=== PATIENT | female | born 1970 | race African-American/Black ===

== ENCOUNTER → 2018-05-10 07:25 | Outpatient (CLI) | payer BC, SELFPAY ==
--- NOTE | 2018-05-10 08:23 | XR_ITS ---
XR chest 2V HISTORY: ITS.REASON: cough ORDERING PHYSICIAN: Lucrecia Fish PATIENT AGE: 47 years COMPARISON: PA and lateral chest 01/10/2018 FINDINGS: The cardiomediastinal silhouette and pulmonary vascularity are within normal limits. The lungs are clear without infiltrates, suspicious nodules, or pleural effusions. No acute bony abnormalities. IMPRESSION: Negative chest, no acute finding
--- NOTE | 2018-05-10 08:23 | XR_ITS ---
XR hip LT 2-3V w/pelvis HISTORY: ITS.REASON: left hip pain ORDERING PHYSICIAN: Lucrecia Fish PATIENT AGE: 47 years COMPARISON: None FINDINGS: No fracture or dislocation is evident. No significant degenerative change. No lytic or blastic change. Unremarkable soft tissues IMPRESSION: Negative hip
[2018-05-10 09:57] LABS: Basophils % 0.5 % (0.1-2.0); Eosinophils # 0.4 K/mm3 (0.0-0.4); Eosinophils % 7.3 % (0.1-12.0); Hematocrit 38.9 % (37.0-47.0); Hemoglobin 13.3 g/dL (12.2-16.2); Lymphocytes # 2.1 K/mm3 (0.7-4.5); Lymphocytes % 39.3 % (10-50); Mean Corpuscular HGB Conc 34.1 g/dL (31.8-35.4); Mean Corpuscular Hemoglobin 29.4 pg (27.0-31.2); Mean Corpuscular Volume 86.3 fl (81-99); Mean Platelet Volume 8.5 fl (7.4-10.4); Monocytes # 0.2 K/mm3 (0.1-1.0); Monocytes % 3.8 % (1.7-9.3); Neutrophils # 2.6 K/mm3 (1.8-7.8); Neutrophils % 49.1 % (37.0-80.0); Platelet Count 224 K/mm3 (142-424); Red Blood Count 4.51 M/mm3 (4.20-5.40); Red Cell Distribution Width 12.7 % (11.5-17.5); White Blood Count 5.2 K/mm3 (4.8-10.8)
[2018-05-10 10:40] LABS: Alanine Aminotransferase 20 U/L (12-78); Albumin Level 3.8 gm/dL (3.4-5.0); Albumin/Globulin Ratio 1.1 (1.1-1.8); Alkaline Phosphatase 50 U/L (46-116); Anion Gap 14.9 mEq/L (5-15); Aspartate Amino Transferase 12 U/L (15-37); Bilirubin,Total 0.5 mg/dL (0.2-1.0); Blood Urea Nitrogen 14 mg/dL (7-18); Calcium 8.7 mg/dL (8.5-10.1); Carbon Dioxide 24 mmol/L (21.0-32.0); Chloride 105 mmol/L (98-107); Chol/HDL Ratio 2.9 (1-3.5); Cholesterol 146 mg/dL (140-200); Creatinine,Serum 1.03 mg/dL (0.55-1.02); Estimated Glomerular Filt Rate 58 ml/min (>60); Ferritin 61 ng/mL (8-388); GFR (African American) 70 ML/MIN (>60); Globulin 3.4 gm/dl (1.3-3.2); Glucose 97 mg/dL (74-106); HDL Cholesterol 51 mg/dL (29-89); LDL Cholesterol 85 mg/dL (0-130); Potassium 3.9 mmoL/L (3.5-5.1); Sodium 140 mmol/L (136-145); Total Protein,Serum 7.2 gm/dL (6.4-8.2); Triglycerides 50 mg/dL (30-200); VLDL Cholesterol 10 mg/dL (0-40)
[2018-05-11 18:30] LABS: Vitamin B12 268 pg/mL (232-1245)
[2018-05-12 09:25] LABS: Vitamin D 25 Hydroxy 16.5 ng/mL (30.0-100.0)
== END ==
PROVIDERS: Visit Provider Nurse Practitioner Family
DX: R53.83 Other fatigue (principal); I10 Essential (primary) hypertension
CPT/HCPCS: 36415; 71046; 73502; 80053; 80061; 82607; 82652; 82728; 84443; 85025

== ENCOUNTER → 2018-05-19 11:04 | Outpatient (CLI) | payer BC, SELFPAY ==
[2018-05-19 11:30] VITALS: PULSE 78; PULSE 80
== END ==
PROVIDERS: PCP Nurse Practitioner Family; Visit Provider Nurse Practitioner Family
DX: R05 Cough (principal)
CPT/HCPCS: 94060; 94640

== ENCOUNTER 2019-02-06 14:16 | Emergency (ER) | payer MEDICAID, SELFPAY ==
[2019-02-06 14:36] VITALS: BP 154/92; PULSE 109; RESP 18; TEMP 36.9; O2SAT 99; BMI 29.7
[2019-02-06 15:30] VITALS: BP 154/92; PULSE 109; RESP 18; TEMP 36.9; O2SAT 99; BMI 29.7
[2019-02-06 15:38] LABS: UTC Influenza A Antigen Negative (Negative); UTC Influenza B Antigen Negative (Negative)
--- NOTE | 2019-02-06 16:01 | HMH.EDUTC ---
[facility] [place] Clinical Impression: Bronchitis Sinusitis Qualifiers: Sinusitis location: unspecified location Chronicity: unspecified Qualified Code(s): J32.9 - Chronic sinusitis, unspecified Disposition: Home, Self-Care Condition on Discharge: Good Instructions: Sinusitis, Sinus Headache, DI for Sinusitis, Acute Bronchitis, DI for Acute Bronchitis Additional Instructions: ? Start antibiotic today. Be sure to complete entire prescription even if feeling better ? Monitor temp. Tylenol every 4 hours as needed and / or ibuprofen every 6 hours as needed ( As long as your primary care physician has told you that it ok to take both. For fever/aches/pains ER if no less than 101 despite Tylenol or Motrin ? Humidifier/vaporizer or hot steamy shower ? Inhaler every 4-6 hours as needed like we discussed. If unsure how to use it, ask pharmacist to demonstrate how. Should help open airways and improve cough, wheezing, and shortness of breath ? Mucinex during the day for your cough and cough suppressant only at night. Be sure to drink lots of water. Insurance may not cover a prescriptions for mucinex. Might be cheaper to get 400mg tablets and take 2 tablet in the morning, mid-day and evening with lots of water. *Tessalon Perles will not cause drowsiness but use at bedtime to help stop cough so that you may get some rest. *Start steroid today. Helps with inflammation therefore, cough and wheezing. Follow directions on the package. Reviewed side effects. Patient reports taking them before. Follow up IMMEDIATELY for new or worsening of symptoms OR no noticeable improvement over the next 48-72 hours. 911 immediately for any life threatening symptoms such as chest pain or difficulty breathing Prescriptions: Albuterol Sulfate [Albuterol HFA Inhaler] 1 - 2 puffs IH Q4-6H PRN #1 inh PRN Reason: Shortness Of Breath Or Wheezing Transmission Status: Pending to [facility] Fluticasone Propionate [Flonase 50mcg nasal spray 16gm] 1 - 2 spr NS DAILY #1 bottle Transmission Status: Pending to [facility] predniSONE [Prednisone 20mg Tab] 20 mg PO BID 5 Days #10 tab Transmission Status: Pending to [facility] Azithromycin [Z-Eduardo 250mg Tab*] 250 mg PO UD DOSE PK #6 tab Transmission Status: Pending to [facility] Referrals: Lucrecia Fish APRN [Primary Care Provider] - As needed Time of Disposition: 16:06 Medical Decision Making - Michael Inquiry Pt receiving controlled substance: No Michael was queried for this patient: No Vital Signs: 02/06/19 14:36 02/06/19 15:30 Temperature 98.4 F 98.4 F Temperature Source Oral Oral Pulse Rate [Right] 109 H 109 H Respiratory Rate 18 18 Blood Pressure [Right Arm] 154/92 H 154/92 H Blood Pressure Mean [Right Arm] 112 112 Blood Pressure Source [Right Arm] Automatic Cuff Blood Pressure Position [Right Arm] Sitting 02 Sat by Pulse Oximetry 99 99 Oxygen Delivery Method Room Air - Lab Data Lab results reviewed: Yes: I reviewed the patient's lab results. Lab Results 02/06/19 15:38: Influenza Type A Ag Negative, Influenza Type B Ag Negative - Reevaluation(s) Time: 16:04 Reevaluation #1: Discussed xray patient declined at this time [facility] [place] - General Stated complaint: cough and wheezing SOA Time Seen by Provider: 02/06/19 16:01 Mode of Arrival: Ambulatory Source of Information: Patient Limitations: No Limitations Description of Symptoms (Recalled from Triage Doc. by RN): Pt c/o cough, congestion, and nasal drianage since yesterday. Denies fever but states she is chilling. HEENT Symptoms (Recalled from RN notes): Yes Resp Symptoms (Recalled from RN notes): No Skin Symptoms (Recalled from RN notes): No MS Symptoms (Recalled from RN notes): No Functional Status (Recalled from RN notes): WNL - History of Present Illness Provider Complaint: Patient states that she hasnt been feeling well for a couple of days States that she has been having cough
[2019-02-06 16:25] VITALS: BP 154/92; PULSE 109; RESP 18; TEMP 36.9; O2SAT 99
== END 2019-02-06 16:26 | disposition home or self-care (01) ==
LOC: ER 14:34 → UTC 14:38
PROVIDERS: Emergency Provider Nurse Practitioner; PCP Nurse Practitioner Family
DX: J20.9 Acute bronchitis, unspecified (principal); J32.9 Chronic sinusitis, unspecified
CPT/HCPCS: 87804; 99201

== ENCOUNTER 2021-05-29 12:15 | Emergency (ER) | payer OTHER, SELFPAY ==
[2021-05-29] VITALS (7 sets, daily range): BP systolic 131–164; BP diastolic 89–106; PULSE 89–104; RESP 16–18; TEMP 36.7–36.8; O2SAT 97–99; BMI 30.8
--- NOTE | 2021-05-29 12:33 | XR_ITS ---
FINAL REPORT TECHNIQUE: Single view chest CLINICAL HISTORY: cough COMPARISON: 05/10/2018 FINDINGS: A single view of the chest was obtained. The heart and mediastinum are within normal limits. The lungs are clear. There is no pneumothorax. Osseous structures are unremarkable. IMPRESSION: No acute cardiopulmonary process. Reviewed, Interpreted and Dictated by Mehul Kelly III, MD Transcribed by Susana Wolff Authenticated by Mehul Kelly III, MD on 05/29/2021 02:05:53 PM [facility]
--- NOTE | 2021-05-29 12:36 | PC.NURSE ---
Notified Rad of CXR
--- NOTE | 2021-05-29 12:52 | PC.NURSE ---
Blood and COVID swab sent to lab
--- NOTE | 2021-05-29 12:53 | HMH.EDGENADL ---
ED Disposition Clinical Impression: Bronchitis Disposition: Home, Self-Care Condition on Discharge: Good Instructions: DI for Acute Bronchitis Prescriptions: methylPREDNISolone [Medrol 4mg tab] 4 mg PO DIRECTED #21 tab Transmission Status: Pending to [facility] Referrals: Cori Glover APRN [Primary Care Provider] - - Critical Care Critical Care Time: No Attestation: On 05/29/21, the high probability of a clinically significant, sudden or life threatening deterioration of the following system(s) required my full and direct attention, intervention and personal management. The time I documented below is in addition to time spent performing reported procedures but includes the following listed in this critical care notation. Medical Decision Making - Medical Records Medical records reviewed: Yes: I reviewed the patient's medical records. - Michael Inquiry Pt receiving controlled substance: No Vital Signs: 05/29/21 12:17 05/29/21 12:30 05/29/21 13:00 Temperature 98.0 F Temperature Source Oral Pulse Rate 104 H 94 H Pulse Rate [Right Radial] 102 H Respiratory Rate 18 18 18 Blood Pressure 137/105 H 164/102 H Blood Pressure [Right Arm] 131/92 H Blood Pressure Mean 113 117 Blood Pressure Mean [Right Arm] 105 Blood Pressure Source [Right Arm] Automatic Cuff Blood Pressure Position [Right Arm] Sitting 02 Sat by Pulse Oximetry 97 98 98 Oxygen Delivery Method Room Air 05/29/21 13:30 05/29/21 14:30 05/29/21 15:00 Temperature Temperature Source Pulse Rate 102 H 90 89 Pulse Rate [Right Radial] Respiratory Rate Blood Pressure 156/95 H 152/106 H 138/92 H Blood Pressure [Right Arm] Blood Pressure Mean 110 121 111 Blood Pressure Mean [Right Arm] Blood Pressure Source [Right Arm] Blood Pressure Position [Right Arm] 02 Sat by Pulse Oximetry Oxygen Delivery Method - Lab Data Lab Results 05/29/21 12:48: WBC 6.8, RBC 4.38, Hgb 12.8, Hct 38.0, MCV 86.7, MCH 29.2, MCHC 33.7, RDW 13.1, Plt Count 402, MPV 8.4, Neut % (Auto) 71.1, Lymph % (Auto) 20.5, [place] % (Auto) 3.3, Eos % (Auto) 3.4, Baso % (Auto) 1.7, Neut # (Auto) 4.9, Lymph # (Auto) 1.4, [place] # (Auto) 0.2, Eos # (Auto) 0.2, Baso # (Auto) 0.1 05/29/21 12:48: Sodium 136, Potassium 4.1, Chloride 106, Carbon Dioxide 24, Anion Gap 10.1, BUN 12, Creatinine 0.80, Estimated Creat Clear 131, Estimated GFR 76, Est GFR ( Amer) 92, Glucose 127 H, Calcium 8.5, Total Bilirubin 0.5, AST 25, ALT 20, Alkaline Phosphatase 63, Total Protein 7.2, Albumin 3.9, Globulin 3.3 H, Albumin/Globulin Ratio 1.2 05/29/21 12:48: SARS-CoV-2 (PCR) Not detected, Influenza A Untype (PCR) Not detected, Influenza Type B (PCR) Not detected Result diagrams: 05/29/21 12:48 05/29/21 12:48 Orders (Tests/Meds): ED MEDICATIONS Generic Name Dose Route Start Last Admin Trade Name Freq PRN Reason Stop Dose Admin Sodium Chloride 10 ml 05/29/21 12:54 Sodium Chloride 0.9% 10ml Flush Syringe IV 06/28/21 12:53 NEEDED PRN Maintain IV Site Discontinued Medications Generic Name Dose Route Start Last Admin Trade Name Freq PRN Reason Stop Dose Admin Iopamidol 100 ml 05/29/21 14:00 05/29/21 14:01 Iopamidol-370 (76%);100ml Bottle IV 05/29/21 14:01 100 ml ONCE ONE Administration Sodium Chloride 50 ml 05/29/21 14:00 05/29/21 14:01 0.9 % Sodium Chloride 50 Ml Vial IV 05/29/21 14:01 50 ml ONCE ONE Administration Sodium Chloride 10 ml 05/29/21 14:00 05/29/21 14:01 Sodium Chloride 0.9% 10ml Syr (Rad Only) IV 05/29/21 14:01 10 ml ONCE ONE Administration - Radiology Data #1 Image(s): Chest Image Reviewed: Yes I reviewed the patient's radiology results, Yes I reviewed the patient's radiology image, Yes I have reviewed radiologist's interpretation Preliminary Findings: Normal/NAD - CT Data CT Scan: Chest Time Received: 15:[address] Reviewed: Yes: I have re
[2021-05-29 13:11] LABS: Basophils # 0.1 K/mm3 (0-0.2); Basophils % 1.7 % (0.1-2.0); Eosinophils # 0.2 K/mm3 (0.0-0.4); Eosinophils % 3.4 % (0.1-12.0); Hemoglobin 12.8 g/dL (12.2-16.2); Lymphocytes # 1.4 K/mm3 (0.7-4.5); Lymphocytes % 20.5 % (10-50); Mean Corpuscular HGB Conc 33.7 g/dL (31.8-35.4); Mean Corpuscular Hemoglobin 29.2 pg (27.0-31.2); Mean Corpuscular Volume 86.7 fl (81-99); Mean Platelet Volume 8.4 fl (7.4-10.4); Monocytes # 0.2 K/mm3 (0.1-1.0); Monocytes % 3.3 % (1.7-9.3); Neutrophils # 4.9 K/mm3 (1.8-7.8); Neutrophils % 71.1 % (37.0-80.0); Platelet Count 402 K/mm3 (142-424); Red Blood Count 4.38 M/mm3 (4.20-5.40); Red Cell Distribution Width 13.1 % (11.5-17.5); White Blood Count 6.8 K/mm3 (4.8-10.8)
[2021-05-29 13:18] LABS: Chloride 106 mmol/L (98-107)
[2021-05-29 13:19] LABS: Potassium 4.1 mmoL/L (3.5-5.1); Sodium 136 mmol/L (136-145)
[2021-05-29 13:21] LABS: Alanine Aminotransferase 20 U/L (12-78); Albumin Level 3.9 g/dl (3.5-5.0); Albumin/Globulin Ratio 1.2 (1.1-1.8); Alkaline Phosphatase 63 U/L (38-126); Anion Gap 10.1 mEq/L (5-15); Aspartate Amino Transferase 25 U/L (14-36); Bilirubin,Total 0.5 mg/dl (0.2-1.3); Blood Urea Nitrogen 12 mg/dl (7-17); Carbon Dioxide 24 mmol/L (22.0-30.0); Creatinine Clearance Estimated 131 mL/min (50-200); Estimated Glomerular Filt Rate 76 ml/min (>60); GFR (African American) 92 ML/MIN (>60); Globulin 3.3 g/dL (1.3-3.2); Total Protein,Serum 7.2 g/dl (6.3-8.2)
[2021-05-29 13:22] LABS: Calcium 8.5 mg/dl (8.4-10.2); Glucose 127 mg/dl (74-100)
--- NOTE | 2021-05-29 13:36 | CT_ITS ---
FINAL REPORT TECHNIQUE: Then section axial CT images of the chest were obtained with contrast. Three-D reformatted images were also obtained.This study was performed with techniques to keep radiation doses as low as reasonably achievable (ALARA). Individualized dose reduction techniques using automated exposure control or adjustment of mA and/or kV according to the patient''s size were employed. CLINICAL HISTORY: shortness of breath- had ankle surgery FINDINGS: There is no evidence of pulmonary embolism. There is no evidence of thoracic aortic aneurysm or dissection. There is no evidence of mediastinal or hilar mass or adenopathy. There is no evidence of pulmonary mass or suspicious nodule. No localized inflammatory process is seen within the lungs. Limited images of the upper abdomen are unremarkable. IMPRESSION: 1. No evidence of pulmonary embolism. 2. No mass or localized inflammatory process. Reviewed, Interpreted and Dictated by Mehul Kelly III, MD Transcribed by Femi Cordero Authenticated by Mehul Kelly III, MD on 05/29/2021 03:18:11 PM [facility]
[2021-05-29 13:47] LABS: Coronavirus 19, PCR Not Detected (NotDetected); Influenza A, PCR Not Detected (NotDetected); Influenza B, PCR Not Detected (NotDetected)
== END 2021-05-29 16:06 | disposition home or self-care (01) ==
PROVIDERS: Emergency Provider Emergency Medicine; PCP Nurse Practitioner Family
DX: R06.02 Shortness of breath (principal); Z79.1 Long term (current) use of non-steroidal anti-inflammatories (NSAID); Z79.01 Long term (current) use of anticoagulants; Z79.52 Long term (current) use of systemic steroids; Z82.49 Family history of ischemic heart disease and other diseases of the circulatory system; Z83.3 Family history of diabetes mellitus
CPT/HCPCS: 71045; 71275; 80053; 85025; 99285; C9803; Q9967; U0003; U0005

== ENCOUNTER 2021-09-09 18:10 | Emergency (ER) | payer BC, OTHER, SELFPAY ==
[2021-09-09 18:30] VITALS: BP 145/86; PULSE 89; RESP 16; TEMP 37.1; O2SAT 97; BMI 30.8
--- NOTE | 2021-09-09 18:33 | XR_ITS ---
PROCEDURE INFORMATION: Exam: XR Chest Exam date and time: 09/09/2021 6:42 PM Age: 51 years old Clinical indication: Cough; Additional info: Cough, SOA TECHNIQUE: Imaging protocol: Radiologic exam of the chest. Views: 2 views. COMPARISON: CR XR CHEST PORTABLE 05/29/2021 12:39 PM FINDINGS: Lungs: Unremarkable. No consolidation. Pleural spaces: Unremarkable. No pleural effusion. No pneumothorax. Heart/Mediastinum: Unremarkable. No cardiomegaly. Bones/joints: Unremarkable. IMPRESSION: No acute findings.
--- NOTE | 2021-09-09 18:34 | HMH.EDUTC ---
[facility] [place] Clinical Impression: COPD exacerbation Pharyngitis Qualifiers: Pharyngitis/tonsillitis etiology: unspecified etiology Qualified Code(s): J02.9 - Acute pharyngitis, unspecified Disposition: Home, Self-Care Condition on Discharge: Good Instructions: DI for Acute Bronchitis, DI for COVID-19 (Suspected or Confirmed ), Preventing the Spread of Coronavirus Discharge Instructions Additional Instructions: Drink plenty of fluids. Take tylenol or ibuprofen for pain or fever. Take the medications as directed. Follow up with your regular doctor. GO TO THE ER FOR ANY WORSENING SYMPTOMS Quarantine until you know the results of your covid-19 test. Notify your school or workplace of your results and follow their instructions regarding return to work/school. Prescriptions: Benzonatate [Benzonatate 100mg cap] 100 mg PO TIDP PRN #30 cap PRN Reason: Cough Transmission Status: [facility] methylPREDNISolone [Medrol] 4 mg PO DIRECTED 6 Days #21 packet Transmission Status: Received by [facility] Azithromycin [Z-Eduardo 250mg Tab*] 250 mg PO UD DOSE PK #6 tab Transmission Status: Received by [facility] Referrals: Cori Glover APRN [Primary Care Provider] - Time of Disposition: 18:51 Medical Decision Making - Medical Records Medical records reviewed: No: I reviewed the patient's medical records. - Michael Inquiry Pt receiving controlled substance: No Vital Signs: 09/09/21 18:30 09/09/21 19:19 Temperature 98.7 F 98.7 F Temperature Source Oral Pulse Rate 89 Pulse Rate [Left] 89 Respiratory Rate 16 16 Blood Pressure 145/86 H Blood Pressure [Right Arm] 145/86 H Blood Pressure Mean [Right Arm] 105 02 Sat by Pulse Oximetry 97 - Lab Data Lab Results 09/09/21 18:22: Strep Scn Rapid Clinic Negative Orders (Tests/Meds): ORDERS Category Date Time Status Strep Screen Confirmation Stat Micro 09/09/21 18:22 Re[place] [facility] [place] - General Stated complaint: sore throat,cough, Time Seen by Provider: 09/09/21 18:34 Mode of Arrival: Ambulatory Source of Information: Patient Limitations: No Limitations Description of Symptoms (Recalled from Triage Doc. by RN): patient comes in with complaints of sore throat, cough, stuffy nose. symptoms began 3 days ago. HEENT Symptoms (Recalled from RN notes): Yes Resp Symptoms (Recalled from RN notes): Yes Skin Symptoms (Recalled from RN notes): No MS Symptoms (Recalled from RN notes): No Functional Status (Recalled from RN notes): n/a - History of Present Illness Provider Complaint: She c/o sore throat, chills, low grade fever, chest tightness and a cough for the past 3 days. - Related Data Previous Rx's Medication Instructions Recorded Ibuprofen [Ibuprofen 600mg 600 mg PO Q6HP PRN #30 tab 01/27/19 Tablet] Methocarbamol [Robaxin 500mg Tab] 500 mg PO BIDP PRN #30 tab 01/27/19 Albuterol Sulfate [Albuterol HFA 1 - 2 puffs IH Q4-6H PRN #1 inh 02/06/19 Inhaler] Azithromycin [Z-Eduardo 250mg Tab*] 250 mg PO UD DOSE PK #6 tab 02/06/19 Fluticasone Propionate [Flonase 1 - 2 spr NS DAILY #1 bottle 02/06/19 50mcg nasal spray 16gm] predniSONE [Prednisone 20mg 20 mg PO BID 5 Days #10 tab 02/06/19 Tab] methylPREDNISolone [Medrol 4mg 4 mg PO DIRECTED #21 tab 05/29/21 tab] Azithromycin [Z-Eduardo 250mg Tab*] 250 mg PO UD DOSE PK #6 tab 09/09/21 Benzonatate [Benzonatate 100mg 100 mg PO TIDP PRN #30 cap 09/09/21 cap] methylPREDNISolone [Medrol] 4 mg PO DIRECTED 6 Days #21 09/09/21 packet Allergies Allergy/AdvReac Type Severity Reaction Status Date / Time No Known Allergies Allergy Verified 09/09/21 18:33 - Worker's Comp Is this a Worker's Comp case?: No H History - Hepatitis A Screen Attestation statement:: This patient has been screened for Hepatitis A risk factors. I have reviewed the patient's past medical history: Y
[2021-09-09 18:42] LABS: UTC Strep Screen (Rapid) Negative (Negative)
[2021-09-09 19:19] VITALS: BP 145/86; PULSE 89; RESP 16; TEMP 37.1
== END 2021-09-09 19:19 | disposition home or self-care (01) ==
PROVIDERS: Emergency Provider Nurse Practitioner Family; PCP Nurse Practitioner Family
DX: J44.1 Chronic obstructive pulmonary disease with (acute) exacerbation (principal); J02.9 Acute pharyngitis, unspecified
CPT/HCPCS: 71046; 87880; 99212; C9803; G0463; U0003; U0005

== ENCOUNTER 2022-03-23 08:10 | Emergency (ER) | payer OTHER, SELFPAY ==
[2022-03-23 08:25] VITALS: BP 146/93; PULSE 92; RESP 20; TEMP 36.8; O2SAT 94; BMI 30.8
--- NOTE | 2022-03-23 08:44 | EXP.UTC ---
Discharge Plan Disposition Patient Disposition: Home, Self-Care Condition: Good Prescriptions Prescriptions: New promethazine-DM 6.25-15 mg/5 mL Syrup 5 ml PO Q6H PRN (Reason: Cough) Qty: 180 0RF prednisone [prednisone] 20 mg tablet 20 mg PO BID 5 Days Qty: 10 0RF doxycycline monohydrate 100 mg tablet 100 mg PO BID 10 Days Qty: 20 0RF albuterol sulfate [Ventolin HFA] 90 mcg/actuation HFA aerosol inhaler 2 puffs inhalation QIDP PRN (Reason: Wheezing) 30 Days Qty: 1 0RF Qvar RediHaler 80 mcg/actuation HFA aerosol breath activated 2 inh inhalation BID Qty: 10.6 0RF Referrals Follow up/Referrals: Provider,Referral, MD [Primary Care Provider] - See instructions Clinical Impressions Clinical Impression: Bronchitis, Acute exacerbation of chronic obstructive pulmonary disease Instructions Patient Instructions: DI for Acute Bronchitis Discharge ED Provider: Tessa Patel [facility] [place] H[place] General Stated complaint: SOA, lung pain Mode of Arrival: Ambulatory Source of Information: Patient Limitations: No Limitations Time Seen by Provider: 03/23/22 08:56 Description of Symptoms (Recalled from Triage Doc. by RN): cough congestion HEENT Symptoms (Recalled from RN notes): Yes Resp Symptoms (Recalled from RN notes): No Skin Symptoms (Recalled from RN notes): No MS Symptoms (Recalled from RN notes): No Functional Status (Recalled from RN notes): n/a History of Present Illness Provider Complaint: 5-6 days of chest congestion, wheezing, shortness of breath. Getting worse. No fever. Denies ear pain or sore throat. Patient does not smoke, but has history of COPD. Not currently using inhalers. Onset (ago): day(s) (6) Location: chest Relieving factors: none Exacerbating factors: none Associated symptoms: chest pain, cough and shortness of breath Treatments prior to arrival: none Related Data Previous Rx's Medication Instructions Recorded albuterol sulfate 90 mcg/actuation 2 puffs inhalation QIDP PRN 03/23/22 aerosol inhaler (Ventolin HFA) Wheezing 30 days #1 ea beclomethasone dipropionate 80 2 inh inhalation BID #10.6 grams 03/23/22 mcg/actuation HFA breath activated aerosol (Qvar RediHaler) doxycycline monohydrate 100 mg 100 mg PO BID 10 days #20 tabs 03/23/22 tablet prednisone 20 mg tablet 20 mg PO BID 5 days #10 tabs 03/23/22 promethazine-DM 6.25 mg-15 mg/5 mL 5 ml PO Q6H PRN Cough #180 mL 03/23/22 oral syrup Allergies Allergy/AdvReac Type Severity Reaction Status Date / Time No Known Allergies Allergy Verified 03/23/22 08:37 Worker's Comp Is this a Worker's Comp case?: No [facility] Disclaimer: The information contained in this section may have been updated after the patient was seen, as this information can be updated by other users. Social History Smoking Status: Former smoker alcohol intake: never current occupational status: employed Travel in the last 8 weeks: None ROS Obtained: Yes All systems reviewed & no additional complaints except as documented Cardiovascular Cardiovascular: Reports dyspnea Respiratory Respiratory: Reports chest congestion, Reports cough, Reports dyspnea and Reports wheezing Allergic/Immunologic Allergic/Immunologic: Reports wheezing Physical Exam General General appearance: alert and in no apparent distress Head Head exam: atraumatic, normocephalic and normal inspection Eye Eye exam: Present normal appearance, PERRL and EOMI ENT ENT exam: Present normal exam, normal oropharynx, mucous membranes moist, TM's normal bilaterally and normal external ear exam Neck Neck exam: Present normal inspection, full ROM and trachea midline; Absent meningismus or lymphadenopathy Chest Chest inspection: Present normal inspection and symmetric chest wall rise; Absent tenderness Respiratory Respiratory exam: Present normal lung sounds bilaterally and wheezes; Absent respiratory distress Expanded Respiratory Exam Location: Upper: rales and
[2022-03-23 09:05] VITALS: BP 146/93; PULSE 92; RESP 20; TEMP 36.8; O2SAT 94
== END 2022-03-23 09:05 | disposition home or self-care (01) ==
PROVIDERS: Emergency Provider Physician Assistant
DX: J40 Bronchitis, not specified as acute or chronic (principal); J44.1 Chronic obstructive pulmonary disease with (acute) exacerbation
CPT/HCPCS: 99212; 99214; G0463

== ENCOUNTER → 2022-07-11 15:25 | Outpatient (CLI) | payer OTHER, SELFPAY ==
[2022-07-11 15:32] LABS: Alanine Aminotransferase 35 U/L (12-78); Albumin Level 3.8 g/dl (3.5-5.0); Albumin/Globulin Ratio 1.4 (1.1-1.8); Alkaline Phosphatase 86 U/L (38-126); Anion Gap 8.8 mEq/L (5-15); Aspartate Amino Transferase 32 U/L (14-36); Bilirubin,Total 0.5 mg/dl (0.2-1.3); Blood Urea Nitrogen 9 mg/dl (7-17); Calcium 8.3 mg/dl (8.4-10.2); Carbon Dioxide 29 mmol/L (22.0-30.0); Chloride 104 mmol/L (98-107); Chol/HDL Ratio 4.1 (1-3.5); Cholesterol 159 mg/dl (140-200); Estimated Glomerular Filt Rate 66 ml/min (>60); GFR (African American) 80 ML/MIN (>60); Globulin 2.8 g/dL (1.3-3.2); Glucose 113 mg/dl (74-100); HDL Cholesterol 39 mg/dl (40-60); Potassium 3.8 mmoL/L (3.5-5.1); Sodium 138 mmol/L (136-145); Total Protein,Serum 6.6 g/dl (6.3-8.2); Triglycerides 140 mg/dl (30-150); VLDL Cholesterol 28 mg/dL (0-40)
[2022-07-11 15:33] LABS: Basophils % 0.6 % (0.1-2.0); Eosinophils # 0.5 K/mm3 (0.0-0.4); Eosinophils % 6.4 % (0.1-12.0); Hematocrit 41.4 % (37.0-47.0); Hemoglobin 13.5 g/dL (12.2-16.2); Lymphocytes # 2.5 K/mm3 (0.7-4.5); Lymphocytes % 34.4 % (10-50); Mean Corpuscular HGB Conc 32.6 g/dL (31.8-35.4); Mean Corpuscular Hemoglobin 28.4 pg (27.0-31.2); Mean Corpuscular Volume 87.1 fl (81-99); Mean Platelet Volume 8.8 fl (7.4-10.4); Monocytes # 0.4 K/mm3 (0.1-1.0); Monocytes % 5.9 % (1.7-9.3); Neutrophils # 3.8 K/mm3 (1.8-7.8); Neutrophils % 52.7 % (37.0-80.0); Platelet Count 303 K/mm3 (142-424); Red Blood Count 4.75 M/mm3 (4.20-5.40); Red Cell Distribution Width 13.2 % (11.5-17.5); White Blood Count 7.2 K/mm3 (4.8-10.8)
[2022-07-11 15:43] LABS: Direct LDL Cholesterol 85.41 mg/dL (100-129)
[2022-07-11 15:49] LABS: 25-OH Vitamin D, Total 26.5 ng/mL (30-100); Triiodothryronine (T3) Uptake 31 % (23.5-40.5)
[2022-07-11 16:04] LABS: Thyroid Stimulating Hormone 4.71 uIU/mL (0.465-4.68)
[2022-07-11 16:37] LABS: Free Thyroxine Index 2.8 ug/dL (5.93-13.13)
== END ==
PROVIDERS: PCP Nurse Practitioner Family; Visit Provider Nurse Practitioner Family
DX: R53.83 Other fatigue (principal); E55.9 Vitamin D deficiency, unspecified; Z79.899 Other long term (current) drug therapy
CPT/HCPCS: 80053; 80061; 82306; 84436; 84443; 84479; 85025

== ENCOUNTER → 2022-07-11 23:15 | Outpatient (CLI) | payer OTHER, SELFPAY | PROVIDERS: PCP Nurse Practitioner Family; Visit Provider Nurse Practitioner Family | DX: J02.9 Acute pharyngitis, unspecified (principal) ==

== ENCOUNTER → 2022-07-17 16:21 | Outpatient (CLI) | payer OTHER, SELFPAY ==
--- NOTE | 2022-07-17 16:21 | MM_ITS ---
PROCEDURE INFORMATION: Exam: Bilateral Screening 3D Mammography Exam date and time: 07/17/2022 4:15 PM Age: 52 years old Clinical indication: Screening mammogram TECHNIQUE: Imaging protocol: Bilateral Screening tomosynthesis and 2D mammography including computer-aided detection (CAD) when performed. COMPARISON: MAMMO SCREENING DIGITAL TOMOSYNTHESIS BILATERAL W CAD 02/04/2020 7:53 AM FINDINGS: MAMMOGRAPHY: Breast composition: There are scattered areas of fibroglandular density. Mass: None. Architectural distortion: No new or suspicious architectural distortion. Calcifications: No new or suspicious calcifications are present Asymmetric density: No new or suspicious asymmetric density is present Skin thickening: None. Axillary adenopathy: None. IMPRESSION: No mammographic evidence of malignancy. Recommend annual screening mammography unless otherwise clinically indicated. ASSESSMENT: BI-RADS category 2: Benign
== END ==
PROVIDERS: PCP Nurse Practitioner Family; Visit Provider Nurse Practitioner Family
DX: Z12.31 Encounter for screening mammogram for malignant neoplasm of breast (principal)
CPT/HCPCS: 77063; 77067

== ENCOUNTER → 2022-07-25 14:12 | Outpatient (CLI) | payer OTHER, SELFPAY ==
--- NOTE | 2022-07-25 14:22 | XR_ITS ---
FINAL REPORT CLINICAL HISTORY: Left foot Pain, weight bearing views. Patient states pain is in heel mostly. COMPARISON: None FINDINGS: RIGHT FOOT: Three views of the right foot were obtained. There is no acute fracture or dislocation. The joint spaces are intact. Pes planus is noted. There is a posterior calcaneal spur. There is no soft tissue abnormality. IMPRESSION: No acute bony abnormality. Reviewed, Interpreted and Dictated by Mehul Kelly III, MD Transcribed by Bernadette Meza Authenticated and [facility]
--- NOTE | 2022-07-25 14:22 | XR_ITS ---
FINAL REPORT CLINICAL HISTORY: Left ankle Pain. patient had surgery 07/2021. COMPARISON: None FINDINGS: LEFT ANKLE: Three views of the left ankle were obtained. Postoperative changes distal tibia. Screw plate and multiple screws are present. Posterior calcaneal spur is noted. There is no acute fracture or dislocation. The joint spaces and mortise are intact. There is no soft tissue abnormality. IMPRESSION: No acute bony abnormality. Reviewed, Interpreted and Dictated by Mehul Kelly III, MD Transcribed by Bernadette Meza Authenticated and [facility]
== END ==
PROVIDERS: PCP Emergency Medicine; Visit Provider Physician Assistant
DX: M25.572 Pain in left ankle and joints of left foot (principal); M79.672 Pain in left foot
CPT/HCPCS: 73610; 73630

== ENCOUNTER 2022-09-19 09:21 | Day surgery (SDC) | payer OTHER, SELFPAY ==
[2022-09-06 12:51] VITALS: BMI 33.8
[2022-09-19 10:01] VITALS: BP 161/90; PULSE 77; RESP 18; TEMP 36.6; O2SAT 100
[2022-09-19 10:47] LABS: Urine Pregnancy, HCG Qual. Negative (Negative)
--- NOTE | 2022-09-19 10:59 | P.PNANES_ITS ---
[facility] Disclaimer: The information contained in this section may have been updated after the patient was seen, as this information can be updated by other users. Medical History COPD (chronic obstructive pulmonary disease) Hypertension Hypothyroidism Vitamin D deficiency Surgical History (Updated 09/06/22 @ 12:46 by Silvia Warner RN) Ankle joint replacement status History of bilateral tubal ligation Family History (Updated 09/06/22 @ 12:46 by Silvia Warner RN) Other Family history of acute congestive heart failure Family history of diabetes mellitus type II Family history of hypertension Social History (Updated 09/06/22 @ 12:46 by Silvia Warner RN) Smoking Status: Never smoker alcohol intake: never substance use type: denies use current occupational status: employed Travel in the last 8 weeks: None household members: significant other housing: house lives independently: Yes marital status: single education level: college service: No residential: No caffeine: Yes special jeff needs: No agree to transfusion: No do you feel safe at home: Yes victim of physical abuse: No victim of emotional abuse: No victim of sexual abuse: No would you like helpful sources: No [facility] Anesthesia Checklist Patient Identification Patient Identification: Arm Band Structural Data Admitted From: Home Planned Operative Procedure/s: Colonoscopy Consent for Planned Operative Procedure(s) Verified: Yes Verified Documents: Surgical Consent and History and Physical NPO Status Verified Time NPO: 00:00 Additional verifications Anesthesia Reactions: No Airway Assessment Mallampati Score:: Class II C-Spine Mobility Assessed: Yes TMJ Mobility Assessed: Yes Dentition: Edentulous Neurological Assessment Level of Consciousness: Awake and Alert Anesthesia Plan Anesthesia Risk discussed: Yes Anesthesia Plan: Verified ASA Class: II Anesthesia Type: MAC
[2022-09-19 11:21] VITALS: O2SAT 96
--- NOTE | 2022-09-19 11:39 | HMH.SCOPE ---
Procedure: Date: 09/19/22 Patient Date of :: 1970 Procedure Performed:: Colonscopy Indications:: Screening colonoscopy Performing Provider:: Shiraz Hernadez MD Referring Provider:: Adi Arteaga MD Sedation:: See RN records Procedure:: After placing the patient in the left lateral decubitus position, the colonoscopy was gently inserted into the rectum and under direct visualization advanced to the cecum which was identified by transillumination in the right lower quadrant, identification of the ileocecal valve, appendiceal orifice, and cecal strap. Color, texture, mucosa, and anatomy of the colon were carefully examined with the scope. Findings:: Anal canal: normal Rectum: Sessile polyp 3 mm in size. Removed with cold forceps Sigmoid colon: fair bowel preparation Descending colon: normal without polyps or inflammatory changes Splenic flexure: normal Transverse colon: normal without polyps or inflammatory changes Hepatic flexure: normal Ascending colon: normal without polyps or inflammatory changes Cecum: normal Terminal ileum: not visualized Impression: Polyp of rectum Fair bowel preparation in the left colon (partially digested food material) Recommendations:: Await pathology results Repeat colonoscopy in 5 years Complications:: None Estimated blood obtained (mL): 0 Colonoscopy Component Colonoscopy Component Was a colonoscopy performed during today's procedure?: Yes Recommended follow up colonoscopy of at least 10 years?: Yes
[2022-09-19 11:41] VITALS: BP 121/67; PULSE 82; RESP 16; TEMP 36.8; O2SAT 98
[2022-09-19 11:51] VITALS: BP 131/88; PULSE 78; RESP 16; TEMP 36.8; O2SAT 100
[2022-09-19 12:01] VITALS: BP 154/96; PULSE 75; RESP 18; TEMP 36.8; O2SAT 100
[2022-09-19 12:18] VITALS: BP 146/91; PULSE 88; RESP 18; TEMP 36.8; O2SAT 100
== END 2022-09-19 12:24 | disposition home or self-care (01) ==
PROVIDERS: PCP Emergency Medicine; Visit Provider Internal Medicine
PROC: 0DJD8ZZ Inspection of Lower Intestinal Tract, Via Natural or Artificial Opening Endoscopic (ICD-10-PCS; CPT 45378; principal; 2022-09-19 10:30)
DX: Z12.11 Encounter for screening for malignant neoplasm of colon (principal); D12.8 Benign neoplasm of rectum
CPT/HCPCS: 45380; 81025; J2704

== ENCOUNTER 2023-03-04 18:18 | Outpatient (CLI) | payer OTHER, SELFPAY ==
[2023-03-04 17:56] LABS: Basophils # 0.1 K/mm3 (0-0.2); Basophils % 0.7 % (0.1-2.0); Eosinophils # 0.4 K/mm3 (0.0-0.4); Eosinophils % 4.7 % (0.1-12.0); Hematocrit 39.1 % (37.0-47.0); Hemoglobin 13.4 g/dL (12.2-16.2); Lymphocytes # 2.6 K/mm3 (0.7-4.5); Lymphocytes % 34.7 % (10-50); Mean Corpuscular HGB Conc 34.3 g/dL (31.8-35.4); Mean Corpuscular Hemoglobin 29.8 pg (27.0-31.2); Mean Corpuscular Volume 86.7 fl (81-99); Mean Platelet Volume 7.9 fl (7.4-10.4); Monocytes # 0.4 K/mm3 (0.1-1.0); Monocytes % 4.6 % (1.7-9.3); Neutrophils # 4.2 K/mm3 (1.8-7.8); Neutrophils % 55.2 % (37.0-80.0); Platelet Count 310 K/mm3 (142-424); Red Cell Distribution Width 13.6 % (11.5-17.5); White Blood Count 7.6 K/mm3 (4.8-10.8)
[2023-03-04 19:50] LABS: Alanine Aminotransferase 110 U/L (12-78); Albumin Level 4.2 g/dl (3.5-5.0); Albumin/Globulin Ratio 1.4 (1.1-1.8); Alkaline Phosphatase 73 U/L (38-126); Anion Gap 10.1 mEq/L (5-15); Aspartate Amino Transferase 71 U/L (14-36); Bilirubin,Total 0.5 mg/dl (0.2-1.3); Blood Urea Nitrogen 9 mg/dl (7-17); Calcium 8.8 mg/dl (8.4-10.2); Carbon Dioxide 33 mmol/L (22.0-30.0); Chloride 100 mmol/L (98-107); Chol/HDL Ratio 5.9 (1-3.5); Cholesterol 219 mg/dl (140-200); Estimated Glomerular Filt Rate 52 ml/min (>60); GFR (African American) 63 ML/MIN (>60); Glucose 110 mg/dl (74-100); HDL Cholesterol 37 mg/dl (40-60); Magnesium 1.9 mg/dl (1.6-2.3); Potassium 3.1 mmoL/L (3.5-5.1); Sodium 140 mmol/L (136-145); Total Protein,Serum 7.2 g/dl (6.3-8.2); Triglycerides 303 mg/dl (30-150); VLDL Cholesterol 61 mg/dL (0-40)
[2023-03-04 20:01] LABS: Direct LDL Cholesterol 104.25 mg/dL (100-129)
[2023-03-04 22:43] LABS: Triiodothryronine (T3) Uptake 30 % (23.5-40.5)
[2023-03-04 22:44] LABS: Free Thyroxine Index 3.2 ug/dL (5.93-13.13); T4 (Thyroxine) 10.5 ug/dl (5.53-11.0)
[2023-03-04 22:58] LABS: Thyroid Stimulating Hormone 2.79 uIU/mL (0.465-4.68)
[2023-03-04 23:09] LABS: Hemoglobin A1C 5.5 % (4.0-6.0)
[2023-03-05 00:26] LABS: Vitamin B12 304 pg/mL (239-931)
== END 2023-03-04 23:59 ==
LOC: LAB.DROPOF 18:19
PROVIDERS: Visit Provider Family Medicine
DX: K59.09 Other constipation (principal); R14.0 Abdominal distension (gaseous); R20.2 Paresthesia of skin; K21.9 Gastro-esophageal reflux disease without esophagitis; I10 Essential (primary) hypertension; Z79.899 Other long term (current) drug therapy
CPT/HCPCS: 80053; 80061; 82607; 83036; 83735; 84436; 84443; 84479; 85025

== ENCOUNTER 2023-04-01 10:03 | Outpatient (CLI) | payer BC, SELFPAY ==
--- NOTE | 2023-04-01 10:09 | XR_ITS ---
FINAL REPORT CLINICAL HISTORY: left shoulder stiffness and pain FINDINGS: LEFT SHOULDER 3 views of the left shoulder were obtained. There is no acute fracture or dislocation. Visualized joint spaces are normally aligned. Soft tissues are unremarkable. IMPRESSION: No acute bony abnormality. Reviewed, Interpreted and Dictated by Neeraj Valenzuela MD Transcribed by Susana Wolff Authenticated and [facility]
[2023-04-01 18:57] LABS: Alanine Aminotransferase 33 U/L (12-78); Albumin Level 3.8 g/dl (3.5-5.0); Albumin/Globulin Ratio 1.3 (1.1-1.8); Alkaline Phosphatase 79 U/L (38-126); Anion Gap 9.6 mEq/L (5-15); Aspartate Amino Transferase 27 U/L (14-36); Bilirubin,Direct 0.2 mg/dl (0.0-0.4); Bilirubin,Indirect 0.2 mg/dL (0.0-0.9); Bilirubin,Total 0.4 mg/dl (0.2-1.3); Bilirubin,Unconjugated 0.2 mg/dL (0.0-1.1); Blood Urea Nitrogen 15 mg/dl (7-17); Calcium 9.4 mg/dl (8.4-10.2); Carbon Dioxide 28 mmol/L (22.0-30.0); Chloride 108 mmol/L (98-107); Estimated Glomerular Filt Rate 52 ml/min (>60); GFR (African American) 63 ML/MIN (>60); Glucose 130 mg/dl (74-100); Potassium 3.6 mmoL/L (3.5-5.1); Sodium 142 mmol/L (136-145); Total Protein,Serum 6.8 g/dl (6.3-8.2)
== END 2023-04-01 23:59 ==
LOC: RAD 10:05
PROVIDERS: PCP Family Medicine; Visit Provider Family Medicine
DX: M25.512 Pain in left shoulder (principal); R79.89 Other specified abnormal findings of blood chemistry
CPT/HCPCS: 73030; 80053; 80076

== ENCOUNTER 2023-04-02 11:02 | Outpatient (CLI) | payer BC, SELFPAY ==
[2023-04-02 09:49] LABS: Hemoglobin A1C 5.6 % (4.0-6.0)
== END 2023-04-02 23:59 ==
LOC: LAB.DROPOF 04-04 11:03
PROVIDERS: PCP Family Medicine; Visit Provider Family Medicine
DX: R73.09 Other abnormal glucose (principal)
CPT/HCPCS: 83036

== ENCOUNTER 2023-04-10 08:10 | Outpatient (CLI) | payer BC, SELFPAY ==
[2023-04-10] MEDS: ALBUTEROL 0.083% 2.5 MG/3 ML NEB IH (09:00)
== END 2023-04-10 23:59 ==
LOC: RT 08:13
PROVIDERS: PCP Family Medicine; Visit Provider Internal Medicine Pulmonary Disease
DX: R06.02 Shortness of breath (principal)
CPT/HCPCS: 94060; 94618; 94726; 94729

== ENCOUNTER 2023-05-16 20:37 | Outpatient (CLI) | payer BC, SELFPAY | END 2023-05-16 23:59 | LOC: LAB.DROPOF 20:38 | PROVIDERS: PCP Nurse Practitioner Family; Visit Provider Nurse Practitioner Family | DX: R35.0 Frequency of micturition (principal); B96.89 Other specified bacterial agents as the cause of diseases classified elsewhere | CPT/HCPCS: 87086 ==

== ENCOUNTER 2023-05-29 15:57 | Outpatient (CLI) | payer BC, SELFPAY ==
[2023-05-29 18:38] LABS: Alanine Aminotransferase 41 U/L (12-78); Albumin Level 3.9 g/dl (3.5-5.0); Albumin/Globulin Ratio 1.3 (1.1-1.8); Alkaline Phosphatase 79 U/L (38-126); Anion Gap 12.4 mEq/L (5-15); Aspartate Amino Transferase 32 U/L (14-36); Bilirubin,Total 0.7 mg/dl (0.2-1.3); Blood Urea Nitrogen 14 mg/dl (7-17); Calcium 9.3 mg/dl (8.4-10.2); Carbon Dioxide 27 mmol/L (22.0-30.0); Chloride 106 mmol/L (98-107); Estimated Glomerular Filt Rate 52 ml/min (>60); GFR (African American) 63 ML/MIN (>60); Globulin 2.9 g/dL (1.3-3.2); Glucose 127 mg/dl (74-100); Potassium 3.4 mmoL/L (3.5-5.1); Sodium 142 mmol/L (136-145); Total Protein,Serum 6.8 g/dl (6.3-8.2)
[2023-05-29 19:00] LABS: T4 (Thyroxine) 9.6 ug/dl (5.53-11.0); Triiodothryronine (T3) Uptake 31 % (23.5-40.5)
[2023-05-29 19:13] LABS: Thyroid Stimulating Hormone 2.53 uIU/mL (0.465-4.68)
== END 2023-05-29 23:59 | disposition home or self-care (01) ==
LOC: LAB.DROPOF 05-30 15:58
PROVIDERS: Visit Provider Family Medicine
DX: E03.9 Hypothyroidism, unspecified (principal); R79.89 Other specified abnormal findings of blood chemistry; I10 Essential (primary) hypertension; Z79.899 Other long term (current) drug therapy
CPT/HCPCS: 80053; 84436; 84443; 84479

== ENCOUNTER 2023-06-14 08:16 | Outpatient (CLI) | payer BC, OTHER, SELFPAY ==
--- NOTE | 2023-06-14 08:53 | US_ITS ---
FINAL REPORT CLINICAL HISTORY: htn COMPARISON: None FINDINGS: RENAL ULTRASOUND: The right kidney measures 9.6 cm in sagittal length. No evidence of hydronephrosis or focal mass is seen. The left kidney measures 9.3 cm in sagittal length. No evidence of hydronephrosis or focal mass is seen. Note is made of fatty infiltration of the liver. IMPRESSION: No evidence of hydronephrosis or renal mass in either kidney. Fatty infiltration of the liver. Reviewed, Interpreted and Dictated by Holli Cook MD Transcribed by Aye Cazares Authenticated and [facility]
--- NOTE | 2023-06-14 10:30 | CA_ITS ---
FINAL REPORT CLINICAL HISTORY: htn FINDINGS: Aorta velocity: 88 cm/sec Right kidney: 9.8 cm. No evidence of hydronephrosis or mass. Right intrarenal RI: 0.52-0.70 Right renal artery velocity: 191 cm/sec. Right RAR (Renal artery-Aortic Ratio): 2.2 Left Kidney: 10.8 cm. No evidence of hydronephrosis or mass. Left intrarenal RI: 0.58-0.63 Left renal artery velocity: 224 cm/sec. Left RAR (Renal Artery-Aortic Ratio): 2.6 IMPRESSION: Findings suggest moderate stenosis near 50% on the left. CT angiogram or postcontrast MR angiogram would be more sensitive for evaluation of possible renal artery stenosis. Reviewed, Interpreted and Dictated by Holli Cook MD Transcribed by Lucia Osullivan Authenticated and [facility]
== END 2023-06-14 23:59 | disposition home or self-care (01) ==
LOC: RT 08:19
PROVIDERS: PCP Family Medicine; Visit Provider Family Medicine
DX: I10 Essential (primary) hypertension (principal); N17.9 Acute kidney failure, unspecified
CPT/HCPCS: 76770; 93976

== ENCOUNTER 2023-08-07 14:56 | Outpatient (CLI) | payer BC, OTHER, SELFPAY ==
--- NOTE | 2023-08-07 15:02 | MM_ITS ---
PROCEDURE INFORMATION: Exam: MG Bilateral Screening 3D Mammography Exam date and time: 08/07/2023 2:47 PM Age: 53 years old Clinical indication: Screening examination; Additional info: Screening mammogram TECHNIQUE: Imaging protocol: Bilateral Screening tomosynthesis and 2D mammography including computer-aided detection (CAD) when performed. COMPARISON: 1. MG MM DIG SCREENING MAMM BI W/CAD 07/17/2022 4:15 PM 2. MG MAMMO SCREENING DIGITAL TOMOSYNTHESIS BILATERAL W CAD 02/04/2020 7:53 AM FINDINGS: MAMMOGRAPHY: Breast composition: There are scattered areas of fibroglandular density. Mass: No suspicious masses. Architectural distortion: No suspicious distortion. Calcifications: No suspicious calcifications. Asymmetric density: None. Skin thickening: None. Axillary adenopathy: None. IMPRESSION: No mammographic evidence of malignancy. Annual screening is recommended unless otherwise clinically indicated. ASSESSMENT: BI-RADS Category 1: Negative
== END 2023-08-07 23:59 | disposition home or self-care (01) ==
LOC: RAD 14:57
PROVIDERS: PCP Family Medicine; Visit Provider Obstetrics & Gynecology
DX: Z12.31 Encounter for screening mammogram for malignant neoplasm of breast (principal)
CPT/HCPCS: 77063; 77067